=== PATIENT | male | born 1995 | race Two or more races ===

== ENCOUNTER 2016-11-04 02:47 | Emergency (ER) | payer OTHER ==
[~2016-11-04] VITALS: Ht 177.8 cm; Wt 62.6 kg
[2016-11-04 02:51] VITALS: BP 100/68
[2016-11-04] MEDS ORDERED: TDAP [DIPH/PERTUSSIS/TET] 0.5 ML VIAL IM ONE ×2 (03:00→03:12)
== END 2016-11-04 03:33 | disposition home or self-care (01) ==
LOC: ER 02:48
DX: S01.01XA Laceration without foreign body of scalp, initial encounter (principal); V00.131A Fall from skateboard, initial encounter; Y93.51 Activity, roller skating (inline) and skateboarding; Y92.89 Other specified places as the place of occurrence of the external cause; Y99.8 Other external cause status
CPT/HCPCS: 90715; A4606; A6402; Z7610